=== PATIENT | female | born 1990 | race African-American/Black ===

== ENCOUNTER 2016-11-21 12:17 | Emergency (ER) | payer SELFPAY ==
[~2016-11-21] VITALS: Ht 154.9 cm; Wt 91.2 kg
[~2016-11-21 12:17] MED LIST: IBUP-1060 PO; PROC10TA57 PO
[2016-11-21] MEDS ORDERED: IV NORMAL SALINE 1000ML BAG 1,000 ML IV SCH (12:36)
--- NOTE | 2016-11-21 12:39 | PHYS DOC ---
Past Medical History Past Medical History: Asthma Past Surgical History: Cholecystectomy Alcohol Use: Occasionally Drug Use: None Adult General Chief Complaint Chief Complaint: NAUSEA/VOMITING/DIARRHA HPI HPI He is a pleasant 26-year-old female who developed nausea vomiting and diarrhea as well as chills subjective fevers after eating what she believes was spoiled shrimp last night at dinner. 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 She developed increasing abdominal discomfort after nausea and vomiting nonbilious nonbloody emesis. She vomited all food about an hour after eating it developed increasing chills and some loose diarrheal stools. She had 5 episodes of diarrhea this morning she described as nonmucoid nonbloody, denies any change in appetite, sick contacts at home with similar symptoms. Although she does say her father had a URI several days ago. She denies any cough, runny nose, sore throat, worse of breath. the pain across abdomen is continuous and is described as a tingling burning sensation around the bellybutton. It began after vomiting. There is no localization to the right upper or right lower abdominal wall. Patient denies any UTI symptoms, vaginal bleeding or discharge or history of STDs. Review of Systems Review of Systems Constitutional: As objective fevers or chills Eyes: Denies change in visual acuity, redness, or eye pain [] HENT: Denies nasal congestion or sore throat [] Respiratory: Denies cough or shortness of breath [] Cardiovascular: No additional information not addressed in HPI [] GI: Patient complains of periumbilical abdominal pain with nausea and vomiting and diarrhea nonbilious nonbloody no mucus in her stool. : Denies dysuria or hematuria [] Musculoskeletal: Denies back pain or joint pain [] Integument: Denies rash or skin lesions [] Neurologic: sHe describes diffuse myalgias with a mild headache worse of life and sudden onset. Endocrine: Denies polyuria or polydipsia [] Current Medications Current Medications Current Medications Medications (Trade) Dose Ordered Sig/Los Start Time Stop Time Status Last Admin Dose Admin Famotidine (Pepcid) 20 mg 1X ONCE 11/21/16 13:15 11/21/16 13:16 DC 11/21/16 13:00 20 MG Ketorolac Tromethamine (Toradol) 30 mg 1X ONCE 11/21/16 13:15 11/21/16 13:16 DC 11/21/16 13:02 30 MG Ondansetron HCl (Zofran) 4 mg 1X ONCE 11/21/16 13:15 11/21/16 13:16 DC 11/21/16 13:03 4 MG Sodium Chloride (Normal Saline Flush) 10 ml QSHIFT PRN 11/21/16 12:45 11/21/16 13:00 10 ML Allergies Allergies Allergies Coded Allergies Type Severity Reaction Last Updated Verified No Known Drug Allergies 11/10/15 No Physical Exam Physical Exam Constitutional: Well developed, well nourished, no acute distress, non-toxic appearance. [] HENT: Normocephalic, atraumatic, bilateral external ears normal, oropharynx moist, no oral exudates, nose normal. [] Eyes: PERRLA, EOMI, conjunctiva normal, no discharge. [] Neck: Normal range of motion, no tenderness, supple, no stridor. [] Cardiovascular:Heart rate regular rhythm, no murmur [] Lungs & Thorax: Bilateral breath sounds clear to auscultation [] Abdomen: Bowel sounds normal, soft, no tenderness, no masses, no pulsatile masses. [] Skin: Warm, dry, no erythema, no rash. [] Back: No tenderness, no CVA tenderness. [] Extremities: No tenderness, no cyanosis, no clubbing, ROM intact, no edema. [] Neurologic: Alert and oriented X 3, normal motor function, normal sensory function, no focal deficits noted. [] Psychologic: Affect normal, judgement normal, mood normal. [] Current Patient Data Vital Signs Vital Signs Date Time Temp Pulse Resp B/P (MAP) Pulse Ox O2 Delivery O2 Flow Rate FiO2 11/21/16 12:30 99.4 98 16 114/57 (76) 96 Room Air 99.4 Lab Values Laboratory Tests Test 11/21/16 11:35 11/21/16 12:23 11/21/16 12:50 11/21/16 13:12 POC Urine HCG, Qualitative Hcg negative (Negative) Urine Collection Type Unknown Urine Color Mar Urine Clarity Clear Urine pH 6.5 Urine Specific [place] >=1.030 Urine Protein 30 mg/dL (NEG-TRACE) Urine Glucose (UA) Negative mg/dL (NEG) Urine Ketones (Stick) 15 mg/dL (NEG) Urine Blood Negative (NEG) Urine Nitrite Negative (NEG) Urine Bilirubin Negative (NEG) Urine Urobilinogen Dipstick 1.0 mg/dL (0.2 mg/dL) Urine Leukocyte Esterase Small (NEG) Urine RBC 0 /HPF (0-2) Urine WBC 1-4 /HPF (0-4) Urine Squamous Epithelial Cells Mod /LPF Urine Bacteria Few /HPF (0-FEW) Urine Mucus Marked /LPF White Blood Count 12.9 x10^3/uL (4.0-11.0) H Red Blood Count 5.19 x10^6/uL (3.50-5.40) Hemoglobin 13.0 g/dL (12.0-15.5) Hematocrit 40.2 % (36.0-47.0) Mean Corpuscular Volume 77 fL (79-100) L Mean Corpuscular Hemoglobin 25 pg (25-35) Mean Corpuscular Hemoglobin Concent 32 g/dL (31-37) Red Cell Distribution Width 16.0 % (11.5-14.5) H Platelet Count 207 x10^3/uL (140-400) Neutrophils (%) (Auto) 89 % (31-73) H Lymphocytes (%) (Auto) 5 % (24-48) L Monocytes (%) (Auto) 6 % (0-9) Eosinophils (%) (Auto) 0 % (0-3) Basophils (%) (Auto) 0 % (0-3) Neutrophils # (Auto) 11.5 x10^3uL (1.8-7.7) H Lymphocytes # (Auto) 0.6 x10^3/uL (1.0-4.8) L Monocytes # (Auto) 0.7 x10^3/uL (0.0-1.1) Eosinophils # (Auto) 0.0 x10^3/uL (0.0-0.7) Basophils # (Auto) 0.0 x10^3/uL (0.0-0.2) Platelet Estimate Pending Sodium Level 139 mmol/L (136-145) Potassium Level 3.5 mmol/L (3.5-5.1) Chloride Level 101 mmol/L (98-107) Carbon Dioxide Level 28 mmol/L (21-32) Anion Gap 10 (6-14) Blood Urea Nitrogen 17 mg/dL (7-20) Creatinine 1.0 mg/dL (0.6-1.0) Estimated GFR (Cockcroft-Gault) 81.7 BUN/Creatinine Ratio 17 (6-20) Glucose Level 109 mg/dL (70-99) H Calcium Level 8.9 mg/dL (8.5-10.1) Total Bilirubin 0.7 mg/dL (0.2-1.0) Aspartate Amino Transferase (AST) 14 U/L (15-37) L Alanine Aminotransferase (ALT) 23 U/L (14-59) Alkaline Phosphatase 55 U/L (46-116) Total Protein 7.9 g/dL (6.4-8.2) Albumin 3.8 g/dL (3.4-5.0) Albumin/Globulin Ratio 0.9 (1.0-1.7) L Lipase 111 U/L (73-393) Influenza Type A Antigen Negative (NEGATIVE) Influenza Type B Antigen Negative (NEGATIVE) Laboratory Tests 11/21/16 12:50 Laboratory Tests 11/21/16 12:50 EKG EKG [] Radiology/Procedures Radiology/Procedures [] IMAGING REPORT Signed PATIENT: EDIE GREEN ACCOUNT: [id number] : 1990 LOCATION: ER AGE: 26 SEX: F EXAM STATUS: REG ER ORD. PHYSICIAN: BEN VILLEGAS MD REASON: n/v/d/ PROCEDURE: ACUTE ABDOMEN SERIES Acute abdomen series with chest, 11/21/2016: History: Vomiting, diarrhea Gas is present in large and small bowel without significant bowel distention. There are a few small scattered air-fluid levels in the GI tract. No free air is seen in the abdomen. There is no evidence of organomegaly. There has been a previous cholecystectomy. Lower pelvic calcifications are compatible with phleboliths. There are streaky radiopacities projected over the left mid to upper abdomen, likely representing radiopaque material within the stomach The heart size and pulmonary vascularity are normal. The lungs are clear. There is no evidence of pleural fluid. IMPRESSION: Several scattered air-fluid levels in the GI tract suggest a mild nonspecific ileus. DICTATED and SIGNED BY: TABITHA WILLAMS MD DATE: 11/21/16 1401 CC: BEN VILLEGAS MD; NO PCP ~ Course & Med Decision Making Course & Med Decision Making Pertinent Labs and Imaging studies reviewed. (See chart for details) Percent with nausea vomiting diarrhea after eating what she thought was spoiled food. She's had multiple episodes of nausea and vomiting with chills and fevers subjectively. Diarrhea 4-5 episodes with no evidence of conception of poultry, handling of poultry, handling of reptiles or fish or consumption of raw fish. Patient denies any recent antibiotic use. Abdomen is soft with only mild tenderness to palpation in the midepigastric region. Patient tells me that their symptoms given during CC are improved. We reviewed labs and radiology reports with patient time is now 1:55 PM Patient has an elevated white blood cell count of 12.9 with no left shift. LFTs and other CMP is otherwise normal. Glucose is mildly elevated at 109. This left shift and margination of her white blood cell count might be associated with increased pain. Acute abdominal series demonstrated nonspecific bowel gas pattern likely ileus doubt small bowel section. As patient is symptom-free at this time. Abdomen is soft with normal bowel sounds. Impression: Nausea vomiting diarrhea possibly viral gastroenteritis. Possible food poisoning. Patient is hemodynamics stable despite having elevated white blood cell count is well-hydrated. Patient given precautions about possibly developing a small bowel obstruction or appendicitis. Dragon Disclaimer Dragon Disclaimer This electronic medical record was generated, in whole or in part, using a voice recognition dictation system. Departure Departure Impression: Primary Impression: Nausea & vomiting Additional Impressions: Ileus Diarrhea Abdominal pain Disposition: 01 HOME, SELF-CARE Condition: IMPROVED Referrals: NO PCP (PCP) Patient Instructions: Abdominal Pain, Diarrhea, Diet for Diarrhea, Adult, Nausea and Vomiting Additional Instructions: Please return for any new or increasing symptoms or if you've any questions or concerns. I would advise that you do follow-up your primary care doctor for repeat evaluation if your symptoms continue without improvement. Please return here if you have any pain localized in the right lower quadrant only developing fever greater than 102.2 with blood in her stool or blood in her vomit. Scripts Ondansetron (ZOFRAN ODT) 4 Mg Tab.rapdis 4 MG PO BID Y for NAUSEA/VOMITING for 7 Days, #14 TAB Prov: BEN VILLEGAS MD 11/21/16 Diphenoxylate Hcl/Atropine (LOMOTIL TABLET) 1 Each Tablet 1 TAB PO QID, #20 TAB Prov: BEN VILLEGAS MD 11/21/16 Dicyclomine Hcl (BENTYL) 10 Mg Capsule 1 CAP PO TID, #30 CAP 3 Refills Prov: BEN VILLEGAS MD 11/21/16 Problem Qualifiers BEN VILLEGAS MD Nov 21, 2016 12:39
[2016-11-21] MEDS ORDERED: 0.9 % SODIUM CHLORIDE 10 ML DISP.SYRIN. IV PRN (12:45)
[2016-11-21 12:58] LABS: BILIRUBIN,URINE NEGATIVE (NEG); GLUCOSE,URINE NEGATIVE (NEG); NITRITE,URINE NEGATIVE (NEG); PH,URINE 6.5; PROTEIN,URINE 30 mg/dL (NEG-TRACE)
[2016-11-21 13:06] LABS: BASO % 0 % (0-3); EOS % 0 % (0-3); HEMATOCRIT 40.2 % (36.0-47.0); LYMPH # 0.6 x10^3/uL (1.0-4.8); LYMPH % 5 % (24-48); MEAN CORPUSCULAR HEMOGLOBIN 25 pg (25-35); MEAN CORPUSCULAR HGB CONC 32 g/dL (31-37); MEAN CORPUSCULAR VOLUME 77 fL (79-100); MONO % 6 % (0-9); NEUT % 89 % (31-73); PLATELET COUNT 207 x10^3/uL (140-400); RED BLOOD COUNT 5.19 x10^6/uL (3.50-5.40); WHITE BLOOD COUNT 12.9 x10^3/uL (4.0-11.0)
[2016-11-21 13:10] LABS: BACTERIA,URINE FEW /HPF (0-FEW); RBC,URINE 0 /HPF (0-2); SQUAMOUS EPITHELIAL CELL,UR MOD /LPF
[2016-11-21] MEDS ORDERED: FAMOTIDINE 20 MG/2 ML VIAL IVP ONE (13:15)
[2016-11-21] MEDS ORDERED: ONDANSETRON PF 4 MG/2 ML VIAL. IV ONE (13:15)
[2016-11-21] MEDS ORDERED: KETOROLAC TROMETHAMINE 30 MG/ML INJ. IV ONE (13:15)
[2016-11-21 13:16] LABS: CALCIUM 8.9 mg/dL (8.5-10.1); GFR 81.7; POTASSIUM 3.5 mmol/L (3.5-5.1)
[2016-11-21 13:23] LABS: ALBUMIN 3.8 g/dL (3.4-5.0); ALBUMIN/GLOBULIN RATIO 0.9 (1.0-1.7); TOTAL BILIRUBIN 0.7 mg/dL (0.2-1.0); TOTAL PROTEIN 7.9 g/dL (6.4-8.2)
[2016-11-21 13:41] LABS: OBC FLU VALID
[2016-11-21 14:00] VITALS: BP 102/54
--- NOTE | 2016-11-21 14:06 | RAD ---
Acute abdomen series with chest, 11/21/2016: History: Vomiting, diarrhea Gas is present in large and small bowel without significant bowel distention. There are a few small scattered air-fluid levels in the GI tract. No free air is seen in the abdomen. There is no evidence of organomegaly. There has been a previous cholecystectomy. Lower pelvic calcifications are compatible with phleboliths. There are streaky radiopacities projected over the left mid to upper abdomen, likely representing radiopaque material within the stomach The heart size and pulmonary vascularity are normal. The lungs are clear. There is no evidence of pleural fluid. IMPRESSION: Several scattered air-fluid levels in the GI tract suggest a mild nonspecific ileus.
[2016-11-21] MEDS ORDERED: DIPH1TAB PO (14:14)
[2016-11-21] MEDS ORDERED: DICY10CA53 PO (14:14)
[2016-11-21] MEDS ORDERED: ONDA4TAB10 PO (14:14)
[2016-11-21 14:30] LABS: PLT ESTIMATE ADEQUATE (ADEQUATE)
== END 2016-11-21 14:26 | disposition home or self-care (01) ==
LOC: ER 12:17
DX: K56.7 Ileus, unspecified (principal); D72.829 Elevated white blood cell count, unspecified; J45.909 Unspecified asthma, uncomplicated; Z90.49 Acquired absence of other specified parts of digestive tract
CPT/HCPCS: 36415; 74022; 80053; 81001; 81025; 83690; 85007; 85025; 87086; 87804; 96374; 96375; 99285; J1885; J2405; J7030; S0028

== ENCOUNTER 2018-09-23 07:59 | Emergency (ER) | payer BC ==
[~2018-09-23] VITALS: Ht 154.9 cm; Wt 112.9 kg
[~2018-09-23 07:59] MED LIST changes: +DICY10CA53 PO; +DIPH1TAB PO; +ONDA4TAB10 PO
--- NOTE | 2018-09-23 08:28 | PHYS DOC ---
Past Medical History Past Medical History: Asthma Past Surgical History: Cholecystectomy, Alcohol Use: Occasionally Drug Use: None Adult General Chief Complaint Chief Complaint: NAUSEA/VOMITING/DIARRHA HPI HPI Patient is a 28 year old female with a history of asthma, cholecystectomy, who presents to the ED today complaining of 10 out of 10 sharp constant abdominal pain just below her umbilicus that began this morning at 4 AM, she also states she has burning when she urinates since this morning. Patient is also complaining of nausea, vomiting,symptoms began at the same time. Patient denies any hematemesis or melena. Denies any fever. Denies any chance she is . Denies any exacerbating or relieving factors to her symptoms. Review of Systems Review of Systems Constitutional: Denies fever or chills [] Eyes: Denies change in visual acuity, redness, or eye pain [] HENT: Denies nasal congestion or sore throat [] Respiratory: Denies cough or shortness of breath [] Cardiovascular: No additional information not addressed in HPI [] GI: Reports abdominal pain, nausea, vomiting, denies diarrhea[] : Denies dysuria or hematuria [] Musculoskeletal: Denies back pain or joint pain [] Integument: Denies rash or skin lesions [] Neurologic: Denies headache, focal weakness or sensory changes [] All other systems were reviewed and found to be within normal limits, except as documented in this note. Current Medications Current Medications Current Medications Medications (Trade) Dose Ordered Sig/Los Start Time Stop Time Status Last Admin Dose Admin Azithromycin (Zithromax) 1,000 mg 1X ONCE 09/23/18 09:45 09/23/18 09:49 DC 09/23/18 10:20 1,000 MG Ceftriaxone Sodium (Rocephin) 1 gm 1X ONCE 09/23/18 09:45 09/23/18 09:49 DC 09/23/18 10:20 1 GM Dicyclomine HCl (Bentyl) 20 mg 1X ONCE 09/23/18 08:45 09/23/18 08:46 DC 09/23/18 08:55 20 MG Famotidine (Pepcid Vial) 20 mg 1X ONCE 09/23/18 08:30 09/23/18 08:31 DC 09/23/18 08:54 20 MG Metoclopramide HCl (Reglan Vial) 10 mg 1X ONCE 09/23/18 10:45 09/23/18 10:46 DC Metronidazole (Flagyl) 2,000 mg 1X ONCE 09/23/18 09:45 09/23/18 09:49 DC 09/23/18 10:20 2,000 MG Ondansetron HCl (Zofran) 4 mg 1X ONCE 09/23/18 08:30 09/23/18 08:31 DC 09/23/18 08:54 4 MG Sodium Chloride 1,000 ml @ 1,000 mls/hr 1X ONCE 09/23/18 08:30 09/23/18 09:29 DC 09/23/18 08:54 1,000 MLS/HR Allergies Allergies Allergies Coded Allergies Type Severity Reaction Last Updated Verified No Known Drug Allergies 09/23/18 No Physical Exam Physical Exam Constitutional: Well developed, well nourished, no acute distress, non-toxic appearance. [] HENT: Normocephalic, atraumatic, bilateral external ears normal, oropharynx moist, no oral exudates, nose normal. [] Eyes: PERRLA, EOMI, conjunctiva normal, no discharge. [] Neck: Normal range of motion, no tenderness, supple, no stridor. [] Cardiovascular:Heart rate regular rhythm, no murmur [] Lungs & Thorax: Bilateral breath sounds clear to auscultation [] Abdomen: Patient is actively vomiting in the ED. Bowel sounds normal, soft, no right upper quadrant or right lower quadrant tenderness, slight tenderness moo und the umbilicus, no masses, no pulsatile masses. Negative Ordaz sign, negative psoas sign, negative obturator sign. Skin: Warm, dry, no erythema, no rash. [] Back: No tenderness, no CVA tenderness. [] Extremities: No tenderness, no cyanosis, no clubbing, ROM intact, no edema. [] Neurologic: Alert and oriented X 3, normal motor function, normal sensory function, no focal deficits noted. [] Psychologic: Affect normal, judgement normal, mood normal. [] Current Patient Data Vital Signs Vital Signs Date Time Temp Pulse Resp B/P (MAP) Pulse Ox O2 Delivery O2 Flow Rate FiO2 09/23/18 08:05 98.1 105 20 150/101 (117) 98 Room Air 98.1 Lab Values Laboratory Tests Test 6/20/19 08:15 09/23/18 08:55 09/23/18 10:00 Urine Collection Type Unknown Urine Color Yellow Urine Clarity Hazy Urine pH 6.0 Urine Specific [employer] 1.025 Urine Protein Negative mg/dL (NEG-TRACE) Urine Glucose (UA) Negative mg/dL (NEG) Urine Ketones (Stick) Negative mg/dL (NEG) Urine Blood Negative (NEG) Urine Nitrite Negative (NEG) Urine Bilirubin Negative (NEG) Urine Urobilinogen Dipstick 0.2 mg/dL (0.2 mg/dL) Urine Leukocyte Esterase Large (NEG) Urine RBC Occ /HPF (0-2) Urine WBC 5-10 /HPF (0-4) Urine Squamous Epithelial Cells Many /LPF Urine Bacteria Few /HPF (0-FEW) Urine Trichomonas Present Urine Opiates Screen Neg (NEG) Urine Methadone Screen Neg (NEG) Urine Barbiturates Neg (NEG) Urine Phencyclidine Screen Neg (NEG) Urine Amphetamine/Methamphetamine Neg (NEG) Urine Benzodiazepines Screen Neg (NEG) Urine Cocaine Screen Neg (NEG) Urine Cannabinoids Screen Neg (NEG) Urine Ethyl Alcohol Neg (NEG) POC Urine HCG, Qualitative Hcg negative (Negative) White Blood Count 17.2 x10^3/uL (4.0-11.0) H Red Blood Count 5.12 x10^6/uL (3.50-5.40) Hemoglobin 13.4 g/dL (12.0-15.5) Hematocrit 41.2 % (36.0-47.0) Mean Corpuscular Volume 81 fL (79-100) Mean Corpuscular Hemoglobin 26 pg (25-35) Mean Corpuscular Hemoglobin Concent 32 g/dL (31-37) Red Cell Distribution Width 14.8 % (11.5-14.5) H Platelet Count 230 x10^3/uL (140-400) Neutrophils (%) (Auto) 93 % (31-73) H Lymphocytes (%) (Auto) 2 % (24-48) L Monocytes (%) (Auto) 5 % (0-9) Eosinophils (%) (Auto) 0 % (0-3) Basophils (%) (Auto) 0 % (0-3) Neutrophils # (Auto) 15.9 x10^3uL (1.8-7.7) H Lymphocytes # (Auto) 0.4 x10^3/uL (1.0-4.8) L Monocytes # (Auto) 0.8 x10^3/uL (0.0-1.1) Eosinophils # (Auto) 0.0 x10^3/uL (0.0-0.7) Basophils # (Auto) 0.1 x10^3/uL (0.0-0.2) Platelet Estimate Pending Sodium Level 140 mmol/L (136-145) Potassium Level 3.9 mmol/L (3.5-5.1) Chloride Level 104 mmol/L (98-107) Carbon Dioxide Level 25 mmol/L (21-32) Anion Gap 11 (6-14) Blood Urea Nitrogen 17 mg/dL (7-20) Creatinine 1.1 mg/dL (0.6-1.0) H Estimated GFR (Cockcroft-Gault) 72.1 BUN/Creatinine Ratio 15 (6-20) Glucose Level 124 mg/dL (70-99) H Calcium Level 8.1 mg/dL (8.5-10.1) L Total Bilirubin 0.4 mg/dL (0.2-1.0) Aspartate Amino Transferase (AST) 16 U/L (15-37) Alanine Aminotransferase (ALT) 27 U/L (14-59) Alkaline Phosphatase 50 U/L (46-116) Total Protein 7.5 g/dL (6.4-8.2) Albumin 3.5 g/dL (3.4-5.0) Albumin/Globulin Ratio 0.9 (1.0-1.7) L Lipase 110 U/L (73-393) Ethyl Alcohol Level < 10 mg/dL (0-10) Laboratory Tests 09/23/18 10:00 Laboratory Tests 09/23/18 10:00 EKG EKG [] Radiology/Procedures Radiology/Procedures [] Course & Med Decision Making Course & Med Decision Making Pertinent Labs and Imaging studies reviewed. (See chart for details) This is a 28-year-old female patient presenting to the ED today with complaints of abdominal pain, nausea, vomiting,symptoms began this morning. Arrives in the ED actively vomiting. Urine analysis is noted for large amount of leukocytes, negative for blood, also noted for squamous cells. CBC with a WBC of 17.2, CMP with no acute findings. Patient is a fever. Was given a liter of fluid, treated for STDs including Flagyl Rocephin and azithromycin. On reevaluation, patient states she is feeling better. She was discharged to home. STD education provided, encouraged to contact all has sex partners and have them treated too. Jessica Disclaimer Jessica Disclaimer This electronic medical record was generated, in whole or in part, using a voice recognition dictation system. Departure Departure Impression: Primary Impression: Pyelonephritis Additional Impressions: Trichomonas vaginitis Nausea and vomiting Disposition: HOME, SELF-CARE Condition: STABLE Referrals: NO PCP (PCP) Follow-up with your own doctor in 1-2 weeks as Patient Instructions: Pyelonephritis, Adult, Trichomoniasis Additional Instructions: You were evaluated in the emergency room and noted for a kidney infection as well as Trichomonas, trichomonas is a sexually-transmitted diseases we treated you in the emergency room. We encouraged you to contact all your sex partners, let them know you were treated for STDs and ask them to seek treatment too. No sex for one week. Use protection at all times. Push fluids. Complete the prescribed antibiotics. Follow-up with your doctor in one week. Scripts Ondansetron Hcl (ZOFRAN) 4 Mg Tablet 1 TAB PO Q6HRS, #20 TAB Prov: MALENA BRADFORD APRN 09/23/18 Cephalexin (CEPHALEXIN) 500 Mg Tablet 1 TAB PO BID, #14 TAB Prov: MALENA BRADFORD APRN 09/23/18 Problem Qualifiers Additional Impressions: Nausea and vomiting Vomiting type: unspecified Vomiting Intractability: unspecified Qualified Codes: R11.2 - Nausea with vomiting, unspecified MALENA BRADFORD APRN Sep 23, 2018 08:28
[2018-09-23] MEDS ORDERED: FAMOTIDINE 20 MG/2 ML VIAL IVP ONE (08:30)
[2018-09-23] MEDS ORDERED: IV NORMAL SALINE 1000ML BAG 1,000 ML IV ONE (08:30)
[2018-09-23] MEDS ORDERED: ONDANSETRON PF 4 MG/2 ML VIAL. IV ONE (08:30)
[2018-09-23] MEDS ORDERED: DICYCLOMINE HCL 10 MG CAPSULE PO ONE (08:45)
[2018-09-23 09:07] LABS: BILIRUBIN,URINE NEGATIVE (NEG); COLOR,URINE YELLOW; NITRITE,URINE NEGATIVE (NEG); PROTEIN,URINE NEGATIVE (NEG-TRACE); UROBILINOGEN,URINE 0.2 mg/dL (0.2 mg/dL)
[2018-09-23 09:09] LABS: BARBITURATES NEG (NEG); BENZODIAZEPINES NEG (NEG); CANNABINOIDS NEG (NEG); COCAINE NEG (NEG); METHADONE NEG (NEG); OPIATES NEG (NEG); PHENCYCLIDINE NEG (NEG)
[2018-09-23 09:10] LABS: AMPHETAMINE/METHAMPHETAMINE NEG (NEG)
[2018-09-23 09:26] LABS: CLARITY,URINE HAZY
[2018-09-23 09:30] LABS: BACTERIA,URINE FEW /HPF (0-FEW); RBC,URINE OCC /HPF (0-2); SQUAMOUS EPITHELIAL CELL,UR MANY /LPF
[2018-09-23 09:34] LABS: TRICHOMONAS,URINE PRESENT
[2018-09-23] MEDS ORDERED: metroNIDAZOLE 500 MG TABLET PO ONE (09:45)
[2018-09-23] MEDS ORDERED: cefTRIAXone IV Push 1 GM VIAL. IVP ONE (09:45)
[2018-09-23] MEDS ORDERED: AZITHROMYCIN 250 MG TABLET. PO ONE (09:45)
[2018-09-23 10:23] LABS: BASO # 0.1 x10^3/uL (0.0-0.2); BASO % 0 % (0-3); EOS % 0 % (0-3); HEMATOCRIT 41.2 % (36.0-47.0); HEMOGLOBIN 13.4 g/dL (12.0-15.5); LYMPH # 0.4 x10^3/uL (1.0-4.8); LYMPH % 2 % (24-48); MEAN CORPUSCULAR HEMOGLOBIN 26 pg (25-35); MEAN CORPUSCULAR HGB CONC 32 g/dL (31-37); MEAN CORPUSCULAR VOLUME 81 fL (79-100); MONO # 0.8 x10^3/uL (0.0-1.1); MONO % 5 % (0-9); NEUT # 15.9 x10^3uL (1.8-7.7); NEUT % 93 % (31-73); PLATELET COUNT 230 x10^3/uL (140-400); RED BLOOD COUNT 5.12 x10^6/uL (3.50-5.40); RED CELL DISTRIBUTION WIDTH 14.8 % (11.5-14.5); WHITE BLOOD COUNT 17.2 x10^3/uL (4.0-11.0)
[2018-09-23 10:33] LABS: ALBUMIN 3.5 g/dL (3.4-5.0); ALBUMIN/GLOBULIN RATIO 0.9 (1.0-1.7); CALCIUM 8.1 mg/dL (8.5-10.1); CREATININE 1.1 mg/dL (0.6-1.0); GFR 72.1; POTASSIUM 3.9 mmol/L (3.5-5.1); TOTAL BILIRUBIN 0.4 mg/dL (0.2-1.0); TOTAL PROTEIN 7.5 g/dL (6.4-8.2)
[2018-09-23] MEDS ORDERED: METOCLOPRAMIDE HCL 10 MG/2 ML VIAL. IV ONE (10:45)
[2018-09-23] MEDS ORDERED: ONDA4TAB7 PO (10:58)
[2018-09-23] MEDS ORDERED: CEPH500T PO (10:58)
[2018-09-23 11:17] LABS: % BANDS 3 % (0-9); % LYMPHS 9 % (24-48); % MONOS 3 % (0-10); % SEGS 85 % (35-66)
[2018-09-23 11:18] LABS: PLT ESTIMATE ADEQUATE (ADEQUATE)
[2018-09-23 11:26] VITALS: BP 105/55
== END 2018-09-23 11:27 | disposition home or self-care (01) ==
LOC: ER 07:59
DX: N12 Tubulo-interstitial nephritis, not specified as acute or chronic (principal); A59.01 Trichomonal vulvovaginitis; R11.2 Nausea with vomiting, unspecified; J45.909 Unspecified asthma, uncomplicated; Z90.49 Acquired absence of other specified parts of digestive tract; Z98.890 Other specified postprocedural states
CPT/HCPCS: 36415; 80053; 80307; 81001; 81025; 83690; 85007; 85025; 96361; 96374; 96375; 99285; G0480; J0696; J2405; J2765; J3490; J7030; Q0144

== ENCOUNTER 2019-09-23 17:26 | Emergency (ER) | payer BC ==
[~2019-09-23] VITALS: Ht 154.9 cm; Wt 120.3 kg
[~2019-09-23 17:26] MED LIST changes: +CEPH500T PO; +ONDA4TAB7 PO
[2019-09-23 17:45] VITALS: BP 149/77
[2019-09-23] MEDS ORDERED: LIDOCAINE 1% Multi-Dose 20 ML VIAL. INJ ONE (18:45)
--- NOTE | 2019-09-23 18:52 | PHYS DOC ---
Past Medical History Past Medical History: Asthma (CAROLYNE JOVEL APRN) Past Surgical History: Cholecystectomy, (CAROLYNE JOVEL APRN) Smoking Status: Never Smoker Alcohol Use: Occasionally Drug Use: None (CAROLYNE JOVEL APRN) General Adult EDM: Chief Complaint: ABSCESS HPI: HPI: Patient is a 29 year old female who presents with patient states for the last week she has had a right sided abdominal abscess that watson. She states a couple days ago she did have a fever. Her temp is slightly elevated here in ED. She denies nausea, vomiting, body aches, abdominal pain, headache, dizziness. Rates her pain 8 out of 10. She is not diabetic. (CAROLYNE JOVEL DIGITAL MEDIA DESIGNER) Review of Systems: Review of Systems: [] Integument: Denies rash. Abscess [] (CAROLYNE JOVEL DIGITAL MEDIA DESIGNER) Heart Score: Risk Factors: Risk Factors: DM, Current or recent (<one month) smoker, HTN, HLP, family history of CAD, obesity. Risk Scores: Score 0 - 3: 2.5% MACE over next 6 weeks - Discharge Home Score 4 - 6: 20.3% MACE over next 6 weeks - Admit for Clinical Observation Score 7 - 10: 72.7% MACE over next 6 weeks - Early Invasive Strategies (CAROLYNE JOVEL APRN) Allergies: Allergies: Allergies Coded Allergies Type Severity Reaction Last Updated Verified No Known Drug Allergies 09/23/19 No (CAROLYNE JOVEL DIGITAL MEDIA DESIGNER) Physical Exam: PE: Constitutional: Well developed, well nourished, no acute distress, non-toxic ap pearance. [] HENT: Normocephalic, atraumatic, bilateral external ears normal, oropharynx moist, no oral exudates, nose normal. [] Eyes: PERRLA, EOMI, conjunctiva normal, no discharge. [] Neck: Normal range of motion, no tenderness, supple, no stridor. [] Cardiovascular:Heart rate regular rhythm, no murmur [] Lungs & Thorax: Bilateral breath sounds clear to auscultation [] Abdomen: Bowel sounds normal, soft, no tenderness, no masses, no pulsatile masses. [] Skin: Warm, dry, no erythema, no rash. Right sided abdomen abscess.[] Back: No tenderness, no CVA tenderness. [] Extremities: No tenderness, no cyanosis, no clubbing, ROM intact, no edema. [] Neurologic: Alert and oriented X 3, normal motor function, normal sensory function, no focal deficits noted. [] Psychologic: Affect normal, judgement normal, mood normal. [] (CAROLYNE JOVEL APRN) Current Patient Data: Vital Signs: Vital Signs Date Time Temp Pulse Resp B/P (MAP) Pulse Ox O2 Delivery O2 Flow Rate FiO2 09/23/19 17:45 99.1 93 20 149/77 (101) 97 Room Air 99.1 (CAROLYNE JOVEL APRN) EKG: EKG: [] (CAROLYNE JOVEL APRN) Radiology/Procedures: Radiology/Procedures: [] (CAROLYNE JOVEL APRN) Course & Med Decision Making: Course & Med Decision Making Pertinent Labs and Imaging studies reviewed. (See chart for details) Jannie-sized abscess that is soft to the right abdomen. With a reddened associated cellulitis that pans out to the size of a total of softball size. I will have the nurse outline it with a marker. Nondraining at this time. Patient is hemodynamically stable. She will be given Keflex antibiotic. She is to follow-up in 48 hours here for a wound check. I&D Location: Right side of abdomen Anesthesia: Lidocaine Scalpel size: #11 Skin: Reddened Drainage: purulent Packing: None Patient tolerated the procedure well with no complications. The area was prepped and draped in usual sterile fashion. Area was cleaned with chloehexidine prior to procedure. Return for signs and symptoms of infection education given. Patient to return in 48 hours for wound recheck. [] (CAROLYNE JOVEL APRN) Dragon Disclaimer: Dragon Disclaimer: This electronic medical record was generated, in whole or in part, using a voice recognition dictation system. (CAROLYNE JOVEL APRN) Departure Departure Impression: Primary Impression: Abscess Disposition: 01 HOME, SELF-CARE Condition: STABLE Referrals: NO PCP (PCP) Patient Instructions: Abscess, Care After Additional Instructions: Use a warm compress. Take medications with food and as prescribed. Do not drink alcohol with medications or drive. Return in 48 hours for a wound recheck. Scripts Hydrocodone/Apap 5-325 (NORCO 5-325 TABLET) 1 Each Tablet 1 TAB PO PRN Q6HRS PRN for PAIN, #10 TAB 0 Refills Prov: CAROLYNE JOVEL APRN 09/23/19 Cephalexin (KEFLEX) 500 Mg Capsule 1 CAP PO TID for 10 Days, #30 CAP 0 Refills Prov: CAROLYNE JOVEL APRN 09/23/19 Justicifation of Admission Dx: Justifications for Admission: Justification of Admission Dx: N/A (CAROLYNE JOVEL APRN) Attending Signature Attending Signature I have reviewed the PA/MOTORBOAT MECHANIC INBOARD/OUTBOARD's note and plan of care. I was available for consultation as needed during the patient's visit in the emergency department. I agree with the clinical impression, plan, and disposition. (SAGE NAIDU DO) CAROLYNE JOVEL APRN Sep 23, 2019 18:52 SAGE NAIDU DO Sep 24, 2019 01:19
[2019-09-23] MEDS ORDERED: LIDOCAINE 1% Multi-Dose 20 ML VIAL. ONE (19:00)
[2019-09-23] MEDS ORDERED: HYDROcodone/APAP 5/325MG 1 TAB TABLET PO ONE (19:00)
[2019-09-23] MEDS ORDERED: HYDROcodone/APAP 5/325MG 1 TAB TABLET ONE (19:01)
[2019-09-23 19:06] LABS: BASO # 0.1 x10^3/uL (0.0-0.2); BASO % 1 % (0-3); EOS # 0.1 x10^3/uL (0.0-0.7); EOS % 1 % (0-3); HEMATOCRIT 37.3 % (36.0-47.0); HEMOGLOBIN 12.3 g/dL (12.0-15.5); LYMPH # 2.6 x10^3/uL (1.0-4.8); LYMPH % 21 % (24-48); MEAN CORPUSCULAR HEMOGLOBIN 26 pg (25-35); MEAN CORPUSCULAR HGB CONC 33 g/dL (31-37); MEAN CORPUSCULAR VOLUME 78 fL (79-100); MONO # 0.6 x10^3/uL (0.0-1.1); MONO % 5 % (0-9); NEUT % 73 % (31-73); PLATELET COUNT 249 x10^3/uL (140-400); RED CELL DISTRIBUTION WIDTH 15.1 % (11.5-14.5); WHITE BLOOD COUNT 12.4 x10^3/uL (4.0-11.0)
[2019-09-23 19:24] LABS: CALCIUM 9.4 mg/dL (8.5-10.1); CREATININE 1.2 mg/dL (0.6-1.0); GFR 64.7
[2019-09-23 19:30] LABS: ALBUMIN 3.6 g/dL (3.4-5.0); ALBUMIN/GLOBULIN RATIO 0.8 (1.0-1.7); TOTAL BILIRUBIN 0.2 mg/dL (0.2-1.0)
[2019-09-23] MEDS ORDERED: CEPH-264 PO (19:39)
[2019-09-23] MEDS ORDERED: HYDR-3164 PO (19:39)
== END 2019-09-23 19:51 | disposition home or self-care (01) ==
LOC: ER 17:26
DX: L02.211 Cutaneous abscess of abdominal wall (principal); R50.9 Fever, unspecified; J45.909 Unspecified asthma, uncomplicated; Z90.49 Acquired absence of other specified parts of digestive tract; Z98.890 Other specified postprocedural states
CPT/HCPCS: 10060; 36415; 80053; 83605; 85025; 87071; 87075; 99283; J3490

== ENCOUNTER 2020-04-16 07:56 | Emergency (ER) | payer BC ==
[~2020-04-16] VITALS: Ht 157.5 cm; Wt 118.0 kg
[~2020-04-16 07:56] MED LIST changes: +CEPH-264 PO; +HYDR-3164 PO
[2020-04-16 08:02] VITALS: BP 126/76
--- NOTE | 2020-04-16 08:07 | PHYS DOC ---
Past Medical History Past Medical History: Asthma Past Surgical History: Cholecystectomy, Smoking Status: Never Smoker Alcohol Use: Occasionally Drug Use: None General Adult EDM: Chief Complaint: SKIN PROBLEM HPI: HPI: 30-year-old AA female past medical history of asthma, presents the ED with complaints of rash over abdomen that started on Thursday, reports h/o 2 prior similar rashes, last treated with bactrim (has rx bottle with her). Reports a fever on Thursday and clear drainage from wound site. Unsure if she's had MRSA. No underlying abdominal pain-normal bms, tolerating food/drink. Is also requesting referral for a primary care physician to establish care. EMR was reviewed and patient had a right-sided abdominal abscess in September 2019 status post I&D and was prescribed Keflex at that time. Review of Systems: Review of Systems: Constitutional: Denies chills or fatigue Eyes: Denies change in visual acuity. [] HENT: Denies nasal congestion or sore throat. [] Respiratory: Denies cough or shortness of breath. [] Cardiovascular: Denies chest pain or edema. [] GI: Denies abdominal pain, nausea, vomiting, bloody stools or diarrhea. [] : Denies dysuria or hematuria Musculoskeletal: Denies back pain or joint pain. [] Integument: Denies diaphoresis or crepitus Neurologic: Denies headache, focal weakness or sensory changes. [] Endocrine: Denies polyuria or polydipsia. [] Lymphatic: Denies swollen glands. [] Psychiatric: Denies depression or anxiety. [] Heart Score: Risk Factors: Risk Factors: DM, Current or recent (<one month) smoker, HTN, HLP, family history of CAD, obesity. Risk Scores: Score 0 - 3: 2.5% MACE over next 6 weeks - Discharge Home Score 4 - 6: 20.3% MACE over next 6 weeks - Admit for Clinical Observation Score 7 - 10: 72.7% MACE over next 6 weeks - Early Invasive Strategies Allergies: Allergies: Allergies Coded Allergies Type Severity Reaction Last Updated Verified I S O L A T I O N *CONTACT* Allergy Unknown 09/28/19 Yes No Known Medication Allergies Allergy Unknown 09/28/19 Yes Physical Exam: PE: Constitutional: Well developed, well nourished, no acute distress, non-toxic appearance, afebrile, obese HENT: Normocephalic, atraumatic, Eyes: EOMI, conjunctiva normal, no discharge. Neck: Normal range of motion, supple, Cardiovascular: S1/2 present, regular rhythm Lungs & Thorax: Speaking in full sentences, bilateral equal chest rise, no tachypnea or increased work of breathing Abdomen: soft, no tenderness, 6x8cm erythema over RLQ of abdomen with a pea- sized raised indurated area in the center of the erythema- no fluctuance, two black scars from prior abscess above this infection in RLQ and RUQ Skin: Warm, dry, no erythema, Back: No tenderness, no CVA tenderness. [] Extremities: No tenderness, no cyanosis, no edema Neurologic: Alert and oriented X 3, normal motor function, normal sensory function, no focal deficits noted. [] Psychologic: Affect normal, judgement normal, mood normal. [] EKG: EKG: [] Radiology/Procedures: Radiology/Procedures: [] Course & Med Decision Making: Course & Med Decision Making Pertinent Labs and Imaging studies reviewed. (See chart for details) Concern for abdominal wall cellulitis with possible pea-sized abscess, no fluctuance, no indication for I&D. Patient afebrile/well appearing. Will prescribe Keflex and Bactrim, warm compresses and wound check in 48 hours. Will discharge home with strict ED return precautions were given for fever, worsening rash, abdominal pain or flulike symptoms. Encouraged urgent outpatient follow-up with PMD in 48 hours for wound check, and dermatology as needed for further outpatient evaluation, consider hidradenitis suppurativa. Life- threatening processes were considered but are low suspicion at this time, given history, physical exam and ED workup. Pt was educated on all prescription medications and adverse effects. All patient's questions were answered and pt was stable at time of discharge. Life/limb-threatening differential includes but is not limited to, erythema multiforme, keller-brandy syndrome, toxic epidermal necrolysis, staphylococcal scalded skin syndrome, necrotizing fasciitis/myositis/cellulitis, purpura fulminans, heparin or warfarin induced skin necrosis, angioedema, anaphylaxis drug rash, disseminated intravascular coagulation, disseminated gonococcal disease, vasculitis, septicemia, petechial disorder or coagulopathy, viral exanthem, Kawasaki's disease or life-threatening burn requiring burn center management or escharotomy. I spoken with the patient and her caregivers. I explained the patient's condition, diagnoses and treatment plan based on the information available to me at this time. I have answered the patient and her caregiver's questions and addressed any concerns. The patient and her caregivers have a good understanding of patient's diagnosis, condition and treatment plan as can be expected at this point. Vital signs have been stable. Patient's condition is stable and appropriate for discharge from the emergency department. Patient will pursue further outpatient evaluation with primary care physician or other designated or consulting physician as outlined in the discharge instructions. The patient and/or caregivers are agreeable to this plan of care and follow-up instructions have been explained in detail. The patient and/or caregivers have received these instructions in written form and have expressed an understanding of the discharge instructions. The patient and/or caregivers are aware that any significant change of condition or worsening of symptoms should prompt immediate return to this or the closest emergency department or call to [facility]. Jessica Disclaimer: Jessica Disclaimer: This electronic medical record was generated, in whole or in part, using a voice recognition dictation system. Departure Departure Impression: Primary Impression: Abscess of abdominal wall Additional Impression: Abdominal wall cellulitis Disposition: 01 DC HOME SELF CARE/HOMELESS Condition: STABLE Referrals: NO PCP (PCP) FOLLOW UP WITH FAMILY MEDICINE: Family Medicine Address: [address] [place] [id number] Patient Instructions: Abscess, Cellulitis Additional Instructions: Dermatology - as [place] [id number] [place] [address] EMERGENCY DEPARTMENT GENERAL DISCHARGE INSTRUCTIONS Thank you for coming to [facility] Emergency Department (ED) today and trusting us with you care. We trust that you had a positive experience in our Emergency Department. If you wish to speak to the department management, you may call the Director at [phone]. YOUR FOLLOW UP INSTRUCTIONS ARE FOLLOWS: 1. Do you have a private Doctor? If you do not have a private doctor, please ask for a resource list of physicians or clinics that may be able to assist you with follow up care. 2. The Emergency Physicain has interpreted your x-rays. The X-Ray specialist will also review them. If there is a change in the findings, you will be notified in 48 hours when at all possible. 3. A lab test or culture has been done, your results will be reviewed and you will be notified if you need a change in treatment. ADDITIONAL INSTRUCTIONS AND INFORMATION: 1. Your care today has been supervised by a physician who is specially trained in emergency care. Many problems require more than one evaluation for a complete diagnosis and treatment. We recommend that you schedule your follow up appointment as recommended to ensure complete treatment of you illness or injury. If you are unable to obtain follow up care and continue to have a problem, or if your condition worsens, we recommend that you return to the ED. 2. We are not able to safely determine your condition over the phone nor are we able to give sound medical advice over the phone. For these safety reasons, if you call for medical advice we will ask you to come to the ED for further evaluation. 3. If you have any questions regarding these discharge instructions please call the ED at [phone]. SAFETY INFORMATION: In the interest of safety, wellness, and injury prevention; we encourage you to wear your sealbelt, if you smoke; quite smoking, and we encourage family to use a protective helmet for bicycling and other sporting events that present an increased risk for head injury. IF YOUR SYMPTOMS WORSEN OR NEW SYMPTOMS DEVELOP, OR YOU HAVE CONCERNS ABOUT YOUR CONDITION; OR IF YOUR CONDITION WORSENS WHILE YOU ARE WAITING FOR YOUR FOLLOW UP APPOINTMENT; EITHER CONTACT YOUR PRIMARY CARE DOCTOR, THE PHYSICIAN WHOSE NAME AND NUMBER YOU WERE Katelyn ZAMORANO, OR RETURN TO THE ED IMMEDIATELY. Scripts Sulfamethoxazole/Trimethoprim (BACTRIM DS TABLET) 1 Each Tablet 1 TAB PO BID for infection for 10 Days, #20 TAB Prov: TERESA JUÁREZ DO 04/16/20 Cephalexin (CEPHALEXIN) 500 Mg Capsule 1 CAP PO QID, #40 CAP Prov: TERESA JUÁREZ DO 04/16/20 TERESA JUÁREZ DO Apr 16, 2020 08:07
[2020-04-16] MEDS ORDERED: SULF1TAB24 PO (08:29)
[2020-04-16] MEDS ORDERED: CEPH500C PO (08:29)
== END 2020-04-16 08:34 | disposition home or self-care (01) ==
LOC: ER 07:56
DX: L03.311 Cellulitis of abdominal wall (principal); J45.909 Unspecified asthma, uncomplicated; Z91.041 Radiographic dye allergy status
CPT/HCPCS: 99283